=== PATIENT | female | born 1995 | race Caucasian/White ===

== ENCOUNTER 2022-04-29 14:51 | Emergency (ER) | payer MEDICAID ==
[~2022-04-29] VITALS: Ht 170.2 cm; Wt 75.0 kg
[2022-04-29 15:04] VITALS: BP 109/68
[2022-04-29] MEDS ORDERED: IBUPROFEN 400MG TABLET PO ONE (16:15)
[2022-04-29] MEDS ORDERED: IBUP-2028 MT (16:30)
== END 2022-04-29 16:36 | disposition home or self-care (01) ==
LOC: ER 15:32
DX: M54.2 Cervicalgia (principal); M54.9 Dorsalgia, unspecified; V49.9XXA Car occupant (driver) (passenger) injured in unspecified traffic accident, initial encounter; Y93.9 Activity, unspecified; Y92.89 Other specified places as the place of occurrence of the external cause; Y99.8 Other external cause status
CPT/HCPCS: 99282